=== PATIENT | female | born 2000 | race Caucasian/White ===

== ENCOUNTER 2023-05-13 14:12 | Emergency (ER) | payer OTHER, SELFPAY ==
[2023-05-13 14:20] VITALS: BP 133/97; PULSE 119; RESP 20; TEMP 36.6; O2SAT 97; BMI 31.8
--- NOTE | 2023-05-13 14:30 | ECG_ITS ---
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
--- NOTE | 2023-05-13 14:30 | ED.GENADUL1 ---
HPI - General Adult General Chief complaint: Recheck/Abnormal Lab/Rx Stated complaint: DKA SYMPTOMS Time Seen by Provider: 05/13/23 14:18 Source: patient Mode of arrival: walk-in Limitations: no limitations History of Present Illness HPI narrative: Patient is an insulin dependent diabetic with an insulin pump who said that she developed nausea and some lower abdominal cramping this morning. Her blood glucose on the monitor jumped from a normal value early this morning to over 350 later in the morning without eating. She said that this happened once before when she had a UTI - she had no urinary symptoms then and has none now. She said that her insulin pump has been giving her insulin since then. She apparently went to [facility] but waited more than an hour in the ED waiting room and decided to leave and come to [facility] E.D[facility] Related Data Allergies Allergy/AdvReac Type Severity Reaction Status Date / Time iodine Allergy Intermediate Verified 05/13/23 14:29 Sulfa (Sulfonamide Allergy Intermediate Verified 05/13/23 14:29 Antibiotics) Exam Narrative Exam Narrative: Nurses notes and vital signs reviewed and patient is not hypoxic. afebrile General: Well-appearing and in no apparent distress. Skin: Warm, dry, no pallor noted. No rash. Head: Normocephalic, atraumatic. Neck: Supple, non-tender. No lymphadenopathy Eye: Pupils are equal, round and EOMI. No scleral icterus. Ears, Nose, Mouth, and Throat: Oral mucosa is moist Cardiovascular: tachycardia. Respiratory: No accessory muscle use or respiratory distress. Lungs are clear to auscultation, no wheezing, rales or rhonchi Back: No CVA tenderness Musculoskeletal: normal ROM, no calf or popliteal tenderness, no lower extremity edema/swelling GI: Abdomen is soft, non-distended. Normal bowel sounds. No tenderness to palpation. No rebound, guarding, or rigidity noted. Neurological: A&O x4. No cranial nerve dysfunction observed. No truncal ataxia. Moves all extremities. Sensation intact. Psychiatric: Cooperative and interactive. Normal mood and affect. Constitutional Vital Signs - 24 hr 05/13/23 14:20 Temperature 98 F Pulse Rate [Monitor] 119 H Respiratory Rate 20 Blood Pressure [Left Arm] 133/97 H Pulse Oximetry 97 Course Vital Signs Vital signs: Vital Signs Temperature 98 F 05/13/23 14:20 Pulse Rate 119 H 05/13/23 14:20 Respiratory Rate 20 05/13/23 14:20 Blood Pressure 133/97 H 05/13/23 14:20 Pulse Oximetry 97 05/13/23 14:20 Temperature 98 F 05/13/23 14:20 Pulse Rate 119 H 05/13/23 14:20 Respiratory Rate 20 05/13/23 14:20 Blood Pressure 133/97 H 05/13/23 14:20 Pulse Oximetry 97 05/13/23 14:20 Medical Decision Making MDM Narrative Medical decision making narrative: Patient was placed on manager inventory control and EKG obtained. Blood drawn and sent for evaluation, including acetone. Urine ordered to be obtained. She was ordered to receive NS IVF and IV Zofran. No infection noted on UA. WBC elevated at 13k and lactate elevated but I do not see a source if infection. UA revealed large glucosuria and ketones but acetone was negative. HCO3 normal. She received 2 liters of NS IVF and IV Zofran and felt better. She is not in DKA - she was given 5 units of SQ insulin for reduction of her blood sugar. Magnesium low - she was given 2gm IV. Patient informed of results, diagnosis and plan for treatment. She was discharged home with recommendation to take her meds as prescribed, continue to monitor her glucose and manage via her insulin pump. ED return if she worsens. Lab Data Lab results reviewed: Yes I reviewed the patient's lab results Labs: Lab Results 05/13/23 05/13/23 05/13/23 Range/Units 14:38 14:57 15:59 WBC 13.8 H (4.0-11.0) 10^3/uL RBC 4.82 (4.20-5.40) 10^6/uL Hgb 14.8 (12.0-16.0) g/dL Hct 43.2 (36.0-48.0) % MCV 89.6 (81.0-99.0) fL MCH 30.7 (26.7-34.0) pg MCHC 34.3 (29.9-35.2) g/dL RDW 11.7 (11.0-15.0) % Plt Count 299 (150-450) 10^3/uL MPV 10.2 (9.5-13.5) fL Neut % (Auto) 88.2 H (43.0-75.0) % Lymph % (Auto) 6.4 L (20.5-60.0) % [place] % (Auto) 4.7 (1.7-12.0) % Eos % (Auto) 0.1 L (0.9-7.0) % Baso % (Auto) 0.2 (0.2-2.0) % Neut # (Auto) 12.2 H (1.4-6.5) 10^3/uL Lymph # (Auto) 0.9 L (1.2-3.8) 10^3/uL [place] # (Auto) 0.6 (0.3-0.8) 10^3/uL Eos # (Auto) 0.0 (0.0-0.7) 10^3/uL Baso # (Auto) 0.0 (0.0-0.1) 10^3/uL Abs Immat Gran (auto) 0.05 H (0.00-0.03) 10^3/uL Imm/Tot Granulo (auto) 0.4 (0.0-0.5) % Sodium 137 (136-145) mmol/L Potassium 4.1 (3.5-5.1) mmol/L Chloride 102 (98-107) mmol/L Carbon Dioxide 22.9 (21.0-32.0) mmol/L Anion Gap 16.2 BUN 11.0 (7.0-18.0) mg/dL Creatinine 0.77 (0.55-1.02) mg/dL Est GFR ( Amer) >60 (>=60) Est GFR (Non-Af Amer) >60 (>=60) BUN/Creatinine Ratio 14.3 Glucose 350 H (74-106) mg/dL Lactate 2.7 H* (0.4-2.0) mmol/L Calcium 9.7 (8.5-10.1) mg/dL Magnesium 1.6 L (1.8-2.4) mg/dL Total Bilirubin 1.3 H (0.2-1.0) mg/dL AST 13 L (15-37) U/L ALT 16 (14-59) U/L Alkaline Phosphatase 91 (46-116) U/L Total Protein 7.4 (6.4-8.2) g/dL Albumin 3.7 (3.4-5.0) g/dL Globulin 3.7 g/dL Albumin/Globulin Ratio 1.0 Serum HCG, Qual Negative (NEGATIVE) Urine Color Lt. yellow (YELLOW) Urine Clarity Clear (CLEAR) Urine pH 6.0 (5.0-9.0) Ur Specific [place] 1.015 (1.005-1.025) Urine Protein Negative (NEG/TRACE) mg/dL Urine Glucose (UA) >=1000 A (NEGATIVE) mg/dL Urine Ketones >=80 A (NEGATIVE) mg/dL Urine Occult Blood Negative (NEGATIVE) Urine Nitrite Negative (NEGATIVE) Urine Bilirubin Negative (NEGATIVE) Urine Urobilinogen 0.2 (0.2-1.0) EU/dL Ur Leukocyte Esterase Negative (NEGATIVE) Acetone, Qual Negative (NEGATIVE) POC Glucose 292 H (74-106) mg/dL ECG Data Interpretation: EKG interpretation: Emergency Department physician interpretation. Sinus tachycardia at 120bpm. Normal axis, normal intervals and non-specific T wave changes. No ST segment elevation or depression. Discharge Plan Discharge Chief Complaint: Recheck/Abnormal Lab/Rx Clinical Impression: Acute hyperglycemia, Hypomagnesemia Patient Disposition: Home, Self-Care Time of Disposition Decision: 16:09 Instructions: Hypomagnesemia (ED), Diabetic Hyperglycemia (ED) Stand Alone Forms: Portal Instructions Referrals: Physician,Non-Staff, MD [Primary Care Provider] - 1 week
--- NOTE | 2023-05-13 14:42 | PC.NURSE ---
Pt FSBS was 322 at time of arrival to ER. Pt concenred she is in DKA at this time. Pt states she feels weak and gtired agt this time. SO states she wasn't acting her normal today on their way to [place].
[2023-05-13] MEDS: 0.9 % SODIUM CHLORIDE 1,000 ML 999 ML IV (14:54)
[2023-05-13 15:05] LABS: Basophils Percent Auto 0.2 % (0.2-2.0); Eosinophils Percent Auto 0.1 % (0.9-7.0); Hematocrit 43.2 % (36.0-48.0); Hemoglobin 14.8 g/dL (12.0-16.0); Immature Granulocytes Abs Auto 0.05 10^3/uL (0.00-0.03); Immature Granulocytes Pct Auto 0.4 % (0.0-0.5); Lymphocytes Absolute Auto 0.9 10^3/uL (1.2-3.8); Lymphocytes Percent Auto 6.4 % (20.5-60.0); Mean Corpuscular HGB Conc 34.3 g/dL (29.9-35.2); Mean Corpuscular Hemoglobin 30.7 pg (26.7-34.0); Mean Corpuscular Volume 89.6 fL (81.0-99.0); Mean Platelet Volume 10.2 fL (9.5-13.5); Monocytes Absolute Auto 0.6 10^3/uL (0.3-0.8); Monocytes Percent Auto 4.7 % (1.7-12.0); Neutrophils Absolute Auto 12.2 10^3/uL (1.4-6.5); Neutrophils Percent Auto 88.2 % (43.0-75.0); Platelet Count 299 10^3/uL (150-450); Red Blood Count 4.82 10^6/uL (4.20-5.40); Red Cell Distribution Width 11.7 % (11.0-15.0); White Blood Count 13.8 10^3/uL (4.0-11.0)
[2023-05-13 15:06] LABS: Bilirubin Urine NEGATIVE (NEGATIVE); Blood Urine NEGATIVE (NEGATIVE); Clarity Urine CLEAR (CLEAR); Color Urine LT. YELLOW (YELLOW); Glucose Urine UA >=1000 mg/dL (NEGATIVE); Ketones Urine >=80 mg/dL (NEGATIVE); Leukocyte Esterase Urine NEGATIVE (NEGATIVE); Nitrite Urine NEGATIVE (NEGATIVE); Protein Urine NEGATIVE (NEG/TRACE); Specific Gravity Urine 1.015 (1.005-1.025); Urobilinogen Urine 0.2 EU/dL (0.2-1.0)
[2023-05-13 15:10] LABS: Urine Microscopic Indicated NO
[2023-05-13 15:33] LABS: Acetone NEGATIVE (NEGATIVE); Lactate/Lactic Acid 2.7 mmol/L (0.4-2.0)
[2023-05-13 15:34] LABS: HCG Qualitative NEGATIVE (NEGATIVE)
[2023-05-13 15:37] LABS: Alanine Aminotransferase 16 U/L (14-59); Albumin Level 3.7 g/dL (3.4-5.0); Alkaline Phosphatase 91 U/L (46-116); Anion Gap 16.2; Aspartate Amino Transferase 13 U/L (15-37); BUN Creatinine Ratio 14.3; Bilirubin Total 1.3 mg/dL (0.2-1.0); Calcium 9.7 mg/dL (8.5-10.1); Carbon Dioxide 22.9 mmol/L (21.0-32.0); Chloride 102 mmol/L (98-107); Estimated GFR (African America >60 (>=60); Estimated GFR (Non-African Ame >60 (>=60); Globulin 3.7 g/dL; Glucose 350 mg/dL (74-106); Magnesium 1.6 mg/dL (1.8-2.4); Potassium 4.1 mmol/L (3.5-5.1); Sodium 137 mmol/L (136-145); Total Protein 7.4 g/dL (6.4-8.2)
[2023-05-13] MEDS: ONDANSETRON PF 4 MG/2 ML VIAL IV (15:38)
[2023-05-13] MEDS: 0.9 % SODIUM CHLORIDE 1,000 ML 1000 ML IV (15:38)
[2023-05-13 16:00] LABS: Glucometer 292 mg/dL (74-106)
[2023-05-13] MEDS: INSULIN REGULAR 300 UNITS/3 ML 5 UNIT SUBQ (16:16)
== END 2023-05-13 16:47 | disposition home or self-care (01) ==
PROVIDERS: Emergency Provider Emergency Medicine
DX: E11.65 Type 2 diabetes mellitus with hyperglycemia (principal); E83.42 Hypomagnesemia; Z79.4 Long term (current) use of insulin; Z96.41 Presence of insulin pump (external) (internal); Z87.440 Personal history of urinary (tract) infections
CPT/HCPCS: 36415; 80053; 81003; 82009; 83605; 83735; 84703; 85025; 93005; 96374; 96375; 99285